=== PATIENT | female | born 1975 ===

== ENCOUNTER 2017-12-09 18:11 | Emergency (ER) | payer OTHER ==
[~2017-12-09] VITALS: Ht 162.6 cm; Wt 68.0 kg
[~2017-12-09 18:11] MED LIST: CIPRO500 MG PO; LEVSIN/SL0.125 MG SL
== END 2017-12-09 21:33 | disposition home or self-care (01) ==
LOC: ER
DX: N83.292 Other ovarian cyst, left side (principal); R10.11 Right upper quadrant pain

== ENCOUNTER 2022-12-16 17:11 | Emergency (ER) | payer OTHER ==
[~2022-12-16] VITALS: Ht 165.1 cm; Wt 70.8 kg
[2022-12-16] MEDS ORDERED: MEDROLPACK PO (19:30)
[2022-12-16] MEDS ORDERED: DOLOGEN CAPLET1 EACH PO (19:30)
== END 2022-12-16 19:34 | disposition home or self-care (01) ==
LOC: ER 17:11
DX: R07.9 Chest pain, unspecified (principal); M94.0 Chondrocostal junction syndrome [Tietze]; Z88.2 Allergy status to sulfonamides